=== PATIENT | male | born 1945 | race Caucasian/White ===

== ENCOUNTER 2016-09-26 20:39 | Emergency (ER) | payer OTHER ==
[~2016-09-26 20:39] MED LIST: ALBUTEROL0.09 MG/A1 INH; ATIVAN0.5 MG PO; ATIVAN1 M1 PO; CO-Q-10 100 MG-1 SGL PO; DEXILANT60 M1 PO; FOLIC ACID0.4 MG PO; HEP-FORTE1 CAP PO; IMODIUM A-D2 M1 PO; LORAZEPAM1 MG PO; METOPROLOL TART50 MG PO; NORTRIPTYLINE H10 M2 PO; NORVASC 5MG TAB5 MG PO; PATANOL5 ML OPH; PRAVASTATIN SOD40 MG PO; THIAMINE HCL50 MG PO; TRAZODONE HCL50 MG PO; VITAMIN B-121000 MC3 PO; VITAMIN D-32000 UNI1 PO; ZOFRAN4 M1 SL
--- NOTE | 2016-09-26 21:07 | ED GI/GU/ABDOMINAL COMPLAINT ---
History of Present Illness General Chief Complaint: General Adult Stated Complaint: PT LOWER BACK PAIN AND SOME BLOOD IN THE URINE Source: patient, old records Exam Limitations: no limitations Vital Signs & Intake/Output Vital Signs & Intake/Output Vital Signs Date Time Temp Pulse Resp B/P Pulse O2 O2 Flow FiO2 Ox Delivery Rate 09/26 2227 96.9 09/26 2217 96 09/26 2217 79 16 153/92 96 Room Air 09/265 97.0 88 24 169/100 95 Allergies Coded Allergies: NO KNOWN ALLERGIES (04/30/16) Reconcile Medications Cholecalciferol (Vitamin D3) (Vitamin D-3) 2,000 UNIT CAPSULE 1 TAB PO DAILY SUPPLEMENT (Reported) Coenzyme Q10/Vitamin E (Co-Q-10 100 MG-1 Iu) 1 SGL SGL 2 SGL PO DAILY SUPPLEMENT (Reported) Cyanocobalamin (Vitamin B-12) 1,000 MCG TABLET 1 TAB PO DAILY SUPPLEMENT ( Reported) Dexlansoprazole (Dexilant) 60 MG CAP.DRShelbyBP 1 CAP PO DAILY gerd (Reported) Diphenoxylate HCl/Atropine (Lomotil 2.5-0.025 MG Tablet) 2.5 MG-0.025 MG TABLET 1 TAB PO 4 TIMES/DAY IBS (Reported) Escitalopram Oxalate 10 MG TABLET 1 TAB PO DAILY MENTAL HEALTH (Reported) Gabapentin 100 MG CAPSULE 1 CAP PO QAM ANXIETY (Reported) Gabapentin (Neurontin) 100 MG CAPSULE 2 CAP PO QPM ANXIETY (Reported) Metoprolol Tartrate 50 MG TABLET 1 TAB PO BID HEART/BP (Reported) Nortriptyline HCl 25 MG CAPSULE 1 CAP PO QPM ANXIETY (Reported) Pravastatin Sodium 40 MG TABLET 40 MG PO QPM cholesterol (Reported) THIAMINE HCL (Thiamine HCl) 50 MG TABLET 1 TAB PO DAILY SUPPLEMENT Triage Note: PER PT PAIN TO RT FLANK X 1 HR NOW URINATING BLOOD. Triage Nurses Notes Reviewed? yes Onset: Abrupt Duration: hour(s): (1), better, constant Timing: recent history Quality/Severity: aching, sharpness, throbbing Severity Numbers: 6 Location: right flank Radiation: no radiation Activities at Onset: none Prior Abdominal Problems: none No Modifying Factors: none Associated Symptoms: hematuria HPI: 71-year-old male presents to emergency room complaining of right flank pain that is nonradiating for the past 1 hours associated with hematuria. He denies history of kidney stones or similar episodes in the past. Symptoms came on while he was watching TV no recent trauma trauma. He denies any nausea vomiting diarrhea. No penile or testicular pain. Patient is a history of bilateral inguinal hernia repair he denies noting any bulges or hernias. No abdominal pain no numbness or tingling in his legs. There are no associated symptoms or modifying factors symptoms are not worse with change in movement he is not taken anything for pain. No fever no chills (CAS DUTTON) Past History Travel History Traveled to [place] past 21 day No Medical History Any Pertinent Medical History? 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 Respiratory: asthma, COPD, emphysema Gastrointestinal: irritable bowel syndrome, peptic ulcer disease, "GROUCHY STOMACH" INGUNIAL HERNIA REPAIR Hepatic: NONE Renal: NONE Musculoskeletal: OSTEOARTHRITIS Psychiatric: anxiety, ALCOHOLISM VISUAL HALLUCINATIONS Endocrine: NONE Blood Disorders: NONE Cancer(s): SKIN CANCER NOSE NON CLINICAL ADVISOR/Reproductive: NONE Other Medical Hx: Alcohol abuse Hypertension History of MRSA: No History of VRE: No History of CDIFF: No Surgical History Surgical History: non-contributory Psychosocial History Who do you live with Patient/Self Services at Home None What is your primary language Yoruba Tobacco Use: Current Daily Use Daily Tobacco Use Amount/Type: => 5 Cigarettes daily Family History Hx Contributory? No (CAS DUTTON) Review of Systems Review of Systems Constitutional: Reports: see HPI. All Other Systems: Reviewed and Negative Comments Review of systems: See HPI, All other systems negative. Constitutional, no chills no fever, no malaise HEENT: No visual changes no sore throat no congestion Cardiovascular: No chest pain , no palpitation Skin, no jaundice no rashes, no change in skin Respiratory: No dyspnea no cough no sputum GI: No nausea no vomiting, : No dysuria hematuria, no frequency, no discharge Muscle skeletal: No joint pain, back pain, no neck pain, Neurologic: No numbness no headache Psych: No stress Heme/endocrine: No bruising no bleeding Immunology: No lymphadenopathy (CAS DUTTON) Physical Exam Physical Exam General Appearance: well developed/nourished, alert, awake Gastrointestinal: normal bowel sounds, soft, non-tender Comments: Well-developed well-nourished person in no acute distress HEENT: Normal EENT exam; PERRL, EOMI. HEAD is atraumatic. moist mucous membranes. Neck: Supple, no lymphadenopathy, normal range of motion Back: Nontender, no CVA tenderness. Full range of motion Cardiovascular: Regular rate and rhythms no murmurs rubs Respiratory: No respiratory distress. Patient speaking in full complete sentences. Breath sounds clear to auscultation bilaterally: NO W/R/R Abdomen: Soft, nontender nondistended, no appreciable organomegaly. Normal bowel sounds. No rebound/guarding, Extremity: No edema, full range of motion of extremities negative straight leg raise bilaterally Neuro: Alert oriented x3, motor sensory normal. There were no obvious focal neurologic abnormalities. Skin: No appreciable rash on exposed skin, skin is warm and dry. Psych: Mood and affect is normal, memory and judgment is normal. Core Measures ACS in differential dx? No Severe Sepsis Present: No Septic Shock Present: No (JORGE PRICE,CAS) Progress Differential Diagnosis: AAA, appendicitis, bowel obstruction, diverticulitis, ischemic bowel, inflamm bowel dis, SBO, ureterolithiasis, urinary retention, urethritis, UTI/pyelo Plan of Care: Orders Procedure Date/time Status URINALYSIS 09/26 2101 Complete COMPREHENSIVE METABOLIC PANEL 09/26 2101 Complete CBC WITHOUT DIFFERENTIAL 09/26 2101 Complete Laboratory Tests 09/26/162140: Anion Gap 9, Estimated GFR 60, BUN/Creatinine Ratio 14.2, Glucose 101 H, Calcium 9.6, Total Bilirubin 0.5, AST 31, ALT 33, Alkaline Phosphatase 94, Total Protein 6.9, Albumin 4.5, Globulin 2.4, Albumin/Globulin Ratio 1.9, CBC w Diff NO MAN DIFF REQ, RBC 4.12 L, MCV 89.0, MCH 30.4, RDW 14.3, MPV 6.4 L, Gran % 80.2 H, Lymphocytes % 11.6 L, Monocytes % 6.1, Eosinophils % 1.6, Basophils % 0.5, Absolute Granulocytes 8.7 H, Absolute Lymphocytes 1.3, Absolute Monocytes 0.7 H, Absolute Eosinophils 0.2, Absolute Basophils 0.1, PUBS MCHC 34.2 09/26/162132: Urine Color BLDY H, Urine Clarity TURBD H, Urine pH 6.0, Ur Specific Sparks 1.025, Urine Protein 100 H, Urine Ketones 15 H, Urine Nitrite NEG, Urine Bilirubin NEG@ICTO, Urine Urobilinogen 1.0, Ur Leukocyte Esterase TRACE H, Ur Microscopic SEDIMENT EXAMINED, Urine RBC PACKD H, Urine Hemoglobin LARGE H, Urine Glucose NEG Labs ordered old records reviewed CAT scan ordered patient declining anything for pain offered Case discussed with dr ag- discussed with the patient at length all of his CAT scan and lab results. I discussed the need for close follow-up with primary care as well as urologist to ensure symptoms have resolved I advised return anytime sooner with any concerns worsening pain fever chills, i answered all his questions. Discussed with him at length all of his incidental findings. He will return with any concerns cleared for discharge (JORGE PRICE,CAS) Diagnostic Imaging: Viewed by Me: CT Scan. Discussed w/RAD: CT Scan. Radiology Impression: PATIENT: PASCUAL SALAZAR PRESENT AGE: 71 PATIENT ACCOUNT NO: [id number] : 46 LOCATION: [facility] ORDERING PHYSICIAN: CAS PRICE SERVICE DATE: 09/26/16 EXAM TYPE: CAT - CT ABD & PELVIS W/O IV CONTRAS EXAMINATION: CT ABDOMEN AND PELVIS WITHOUT CONTRAST CLINICAL INFORMATION: Right flank pain, hematuria COMPARISON: 2009 TECHNIQUE: Multidetector volumetric imaging was performed from the lung bases through the pubic symphysis. Sagittal and coronal reformatted images were obtained on the technologist workstation. Total exam dose-length product 242 mGy -cm FINDINGS: The lack of intravenous contrast limits evaluation of the solid visceral organs including the liver, spleen, pancreas, and kidneys. LUNG BASES: Right base linear atelectasis. Normal heart size. No pleural effusion or pneumothorax. LIVER, GALLBLADDER, AND BILIARY TREE: Limited non-contrast evaluation is normal. No gross focal hepatic lesion. Normal liver size and contour. No gross biliary ductal dilation. The gallbladder is unremarkable with no evidence of radiopaque gallstones, gallbladder wall thickening, or obvious pericholecystic inflammatory changes. PANCREAS: Limited non-contrast evaluation is normal. No lizeth-pancreatic fluid. SPLEEN: Limited non-contrast evaluation is normal. ADRENAL GLANDS: Normal; no adrenal mass. KIDNEYS AND URETERS: Left kidney is normal. No radiopaque urolithiasis is seen. There is prominence of the right renal pelvis and asymmetric mild to moderate right hydroureter from the right renal pelvis to the bladder. No obstructing radiopaque calculus seen. GASTROINTESTINAL TRACT: The stomach is distended with ingested material. The small bowel is nondilated. ABDOMINAL WALL: Fat-containing bilateral inguinal hernias, left greater than right. LYMPH NODES: No pathologically enlarged lymph nodes in the abdomen or pelvis. VASCULAR: Tortuous aorta. No aneurysm. Mild calcified atherosclerotic change. BLADDER: Mildly distended. Circumferentially thick walled. PELVIC VISCERA: Normal noncontrast appearance of the prostate and seminal vesicles. OSSEOUS STRUCTURES: Multilevel degenerative changes of the lumbar spine are seen. There is vacuum disc phenomenon, loss of disc height, endplate sclerosis, Schmorl's node deformities, and anterior osteophytosis L2-L3 , L3-L4, and L4-L5. IMPRESSION: There is asymmetric dilation of the right ureter. However, no obstructing radiopaque calculus is seen. A recently passed stone could give this appearance. Pyelonephritis could also have this appearance. DICTATED BY: SARI TERRELL MD DATE/TIME DICTATED:09/26/162135 WEATHER CLERK:ANISA DATE/TIME TRANSCRIBED:09/26/162135 CONFIDENTIAL, DO NOT COPY WITHOUT APPROPRIATE AUTHORIZATION. <Electronically signed in Other Vendor System> SIGNED BY: SARI TERRELL MD 09/26/162149 Initial ED EKG: none (CAS DUTTON) Departure Departure Time of Disposition: 2219 Disposition: HOME OR SELF CARE Condition: Stable Clinical Impression Primary Impression: Kidney stone Secondary Impressions: Hematuria Referrals: SHRUTI BARRETO MD (PCP/Family) Additional Instructions: follow up with urologist dr denise. tylenol or motrin if needed. return at anytime sooner if you redevelop symptoms or have any other concerns. Departure Forms: Customer Survey General Discharge Information (CAS DUTTON) PA/FIRE CREW SPECIALIST Co-Sign Statement Statement: ED Attending supervision documentation- x I saw and evaluated the patient. I have also reviewed all the pertinent lab results and diagnostic results. I agree with the findings and the plan of care as documented in the PA's/FIRE CREW SPECIALIST's documentation. [] I have reviewed the ED Record and agree with the PA's/FIRE CREW SPECIALIST's documentation. [] Additions or exceptions (if any) to the PAs/FIRE CREW SPECIALIST's note and plan are summarized below: [] (LAWSON MEADOWS,ROSEMARIE)
[2016-09-26] MEDS ORDERED: LOMOTIL 2.5-0.1 EACH PO (21:16)
[2016-09-26] MEDS ORDERED: ESCITALOPRAM OX10 MG PO (21:17)
[2016-09-26] MEDS ORDERED: METOPROLOL TART50 M1 PO (21:17)
[2016-09-26] MEDS ORDERED: GABAPENTIN100 M2 PO (21:18)
[2016-09-26] MEDS ORDERED: NORTRIPTYLINE H25 M2 PO (21:19)
[2016-09-26] MEDS ORDERED: NEURONTIN100 M1 PO (21:19)
[2016-09-26 21:50] LABS: ABSOLUTE BASOPHIL COUNT 0.1 /CUMM (0.0-0.2); ABSOLUTE EOSINOPHIL COUNT 0.2 /CUMM (0.0-0.7); ABSOLUTE GRANULOCYTE CT 8.7 /CUMM (1.4-6.5); ABSOLUTE LYMPH COUNT 1.3 /CUMM (1.2-3.4); ABSOLUTE MONOCYTE COUNT 0.7 /CUMM (0.10-0.60); BASOPHIL % 0.5 % (0.0-2.0); EOSINOPHIL % 1.6 % (0-5); GRANULOCYTE % 80.2 % (42.2-75.2); HEMATOCRIT 36.6 % (42-52); MEAN CORPUSCULAR HGB 30.4 PG (27.0-31.0); MEAN CORPUSCULAR HGB CONC 34.2 G/DL (33.0-37.0); MEAN PLATELET VOLUME 6.4 FL (7.4-10.4); PLATELET COUNT 236 /CUMM (130-400); RBC DISTRIBUTION WIDTH 14.3 % (11.5-14.5); RED BLOOD CELL CT 4.12 /CUMM (4.70-6.10); WHITE BLOOD CELL COUNT 10.9 /CUMM (4.8-10.8)
--- NOTE | 2016-09-26 21:50 | CT SCAN REPORT ---
EXAMINATION: CT ABDOMEN AND PELVIS WITHOUT CONTRAST CLINICAL INFORMATION: Right flank pain, hematuria COMPARISON: 11/07/2009 TECHNIQUE: Multidetector volumetric imaging was performed from the lung bases through the pubic symphysis. Sagittal and coronal reformatted images were obtained on the technologist workstation. Total exam dose-length product 242 mGy-cm FINDINGS: The lack of intravenous contrast limits evaluation of the solid visceral organs including the liver, spleen, pancreas, and kidneys. LUNG BASES: Right base linear atelectasis. Normal heart size. No pleural effusion or pneumothorax. LIVER, GALLBLADDER, AND BILIARY TREE: Limited non-contrast evaluation is normal. No gross focal hepatic lesion. Normal liver size and contour. No gross biliary ductal dilation. The gallbladder is unremarkable with no evidence of radiopaque gallstones, gallbladder wall thickening, or obvious pericholecystic inflammatory changes. PANCREAS: Limited non-contrast evaluation is normal. No lizeth-pancreatic fluid. SPLEEN: Limited non-contrast evaluation is normal. ADRENAL GLANDS: Normal; no adrenal mass. KIDNEYS AND URETERS: Left kidney is normal. No radiopaque urolithiasis is seen. There is prominence of the right renal pelvis and asymmetric mild to moderate right hydroureter from the right renal pelvis to the bladder. No obstructing radiopaque calculus seen. GASTROINTESTINAL TRACT: The stomach is distended with ingested material. The small bowel is nondilated. ABDOMINAL WALL: Fat-containing bilateral inguinal hernias, left greater than right. LYMPH NODES: No pathologically enlarged lymph nodes in the abdomen or pelvis. VASCULAR: Tortuous aorta. No aneurysm. Mild calcified atherosclerotic change. BLADDER: Mildly distended. Circumferentially thick walled. PELVIC VISCERA: Normal noncontrast appearance of the prostate and seminal vesicles. OSSEOUS STRUCTURES: Multilevel degenerative changes of the lumbar spine are seen. There is vacuum disc phenomenon, loss of disc height, endplate sclerosis, Schmorl's node deformities, and anterior osteophytosis L2-L3, L3-L4, and L4-L5. IMPRESSION: There is asymmetric dilation of the right ureter. However, no obstructing radiopaque calculus is seen. A recently passed stone could give this appearance. Pyelonephritis could also have this appearance.
[2016-09-26 22:18] VITALS: BP 153/92
== END 2016-09-26 22:30 ==
LOC: ERH 20:39
PROVIDERS: Physician Assistant Medical
DX: N20.0 Calculus of kidney (principal)
CPT/HCPCS: 74176; 81001